=== PATIENT | female | born 1965 | race Caucasian/White ===

== ENCOUNTER → 2016-09-29 | Outpatient (CLI) | payer BC ==
--- NOTE | 2016-09-30 10:18 | DI ---
US UP/LOW EXT VEINS U/L OR LTD,09/29/2016 12:41 PM: Clinical History: Right calf pain. Previous Exam: None at this facility. Findings: Multiple grayscale and color Doppler sonographic images are obtained through the deep veins of the [facility] lower extremity demonstrating complete coaptation upon graded compression throughout. There is no evidence of echogenic thrombus. There are normal venous Doppler waveforms. Impression: No evidence of deep venous thrombosis.
== END ==
LOC: US 12:36
PROVIDERS: ATTEND Orthopaedic Surgery Hand Surgery
DX: M79.661 Pain in right lower leg (principal)
CPT/HCPCS: 93971